=== PATIENT | male | born 1935 | race Caucasian/White ===

== ENCOUNTER 2021-03-09 06:13 | Day surgery (SDC) | payer MEDICARE, BC ==
[2021-03-08 16:25] LABS: BASOPHILS % (AUTO) 0.5 % (0-1); EOSINOPHILS # (AUTO) 0.2 X10'3 (0-0.9); HEMATOCRIT 43.9 % (42.0-52.0); HEMOGLOBIN 14.6 g/dl (14.0-17.9); LYMPHOCYTES # (AUTO) 1.1 X10'3 (1.1-4.8); LYMPHOCYTES % (AUTO) 18.8 % (21-51); MEAN CORPUSCULAR HEMOGLOBIN 28.7 PG (27.0-31.0); MEAN CORPUSCULAR HGB CONC 33.2 g/dL (33.0-36.5); MEAN CORPUSCULAR VOLUME 86.3 FL (78-98); MEAN PLATELET VOLUME 8.5 FL (7.4-10.4); MONOCYTES # (AUTO) 0.5 X10'3 (0-0.9); MONOCYTES % (AUTO) 8.5 % (2-12); NEUTROPHILS # (AUTO) 3.9 X10'3 (1.8-7.7); NEUTROPHILS % (AUTO) 69.2 % (42-75); PLATELET COUNT 213 X10'3 (140-440); RED BLOOD COUNT 5.08 X10'6 (4.70-6.10); RED CELL DISTRIBUTION WIDTH 13.9 % (11.5-14.5); WHITE BLOOD COUNT 5.6 X10'3 (4.5-11.0)
[2021-03-08 16:34] LABS: ALBUMIN 3.5 G/DL (3.4-5.0); ANION GAP 9 (8-16); BLOOD UREA NITROGEN 21 MG/DL (7-18); BUN/CREATININE RATIO 18.8 (5.4-32.0); CALCIUM 8.6 MG/DL (8.5-10.1); CHLORIDE 108 MMOL/L (99-107); CREATININE 1.12 MG/DL (0.60-1.10); GLUCOSE 91 MG/DL (70-104); POTASSIUM 5.1 MMOL/L (3.5-5.1); SODIUM 144 MMOL/L (135-145); TOTAL CARBON DIOXIDE 27.5 MMOL/L (24-32); eGFR 63 ML/MIN
[2021-03-08 16:37] LABS: PARTIAL THROMBOPLASTIN TIME 27 SECONDS (22-32)
[~2021-03-09] VITALS: Ht 180.3 cm; Wt 77.7 kg
[2021-03-09] VITALS (10 sets, daily range): BP systolic 120–158; BP diastolic 52–104
[~2021-03-09 06:13] MED LIST: APIX5TAB3 PO; FLO0.4C PO; LANS15CA14 PO; SOTA80TA73 PO
[2021-03-09] MEDS ORDERED: normal saline 1000ml 1,000 ML IV SCH ×2 (06:35→08:05)
[2021-03-09] MEDS ORDERED: ATOR20TA66 PO (06:48)
[2021-03-09] MEDS ORDERED: SOTA80TA PO (06:48)
[2021-03-09] MEDS ORDERED: VITAMIN D PO (06:50)
[2021-03-09] MEDS ORDERED: APIX5TAB3 PO (06:50)
[2021-03-09] MEDS ORDERED: midazolam 1 mg/ML 2ml injection ONE ×2 (07:25→08:43)
[2021-03-09] MEDS ORDERED: LIDOcaine 1% W/epiNEPHrine 1:100,000 20ml vial ONE (07:25)
[2021-03-09] MEDS ORDERED: ceFAZolin 1000mg inj ONE (07:25)
[2021-03-09] MEDS ORDERED: fentaNYL/PF 50MCG/1 ML 2ML syringe ONE (07:25)
[2021-03-09] MEDS ORDERED: LIDOCAINE 1%/EPI 1:100,000 inj. 10 ML multi-dose vial ONE (07:28)
[2021-03-09] MEDS ORDERED: cefazolin/dext.iso 2gm/100ml 100 ML IV ONE (08:05)
[2021-03-09] MEDS ORDERED: ceFAZolin/D5W- 1GM premix 50 ML IV ONE (08:06)
[2021-03-09] MEDS ORDERED: verapamil 2.5 mg/ml inj IV ONE (08:45)
[2021-03-09] MEDS ORDERED: amiodarone 50MG/ML inj IV ONE (08:51)
--- NOTE | 2021-03-09 09:45 | NUR ---
Pt returned from [facility] of [facility] cath lab with Vancomycin hung and running at 150ml/hr.
[2021-03-09] MEDS ORDERED: HYDROcodone/acetaminophen 10/325mg tab PO PRN (10:00)
[2021-03-09] MEDS ORDERED: HYDROcodone/acetaminophen 5mg/325mg tablet PO PRN (10:00)
--- NOTE | 2021-03-09 10:30 | NUR ---
Pt off the unit floor to have CXR.
--- NOTE | 2021-03-09 12:30 | NUR ---
Pt ambulated to bathroom, voided. Pt denies sob, denies cp.
== END 2021-03-09 15:00 | disposition home or self-care (01) ==
LOC: SSTAY O 06:13
PROVIDERS: ATTEND Internal Medicine Cardiovascular Disease
DX: I49.5 Sick sinus syndrome (principal); I25.119 Atherosclerotic heart disease of native coronary artery with unspecified angina pectoris; I25.2 Old myocardial infarction; I48.0 Paroxysmal atrial fibrillation; E78.5 Hyperlipidemia, unspecified; K21.9 Gastro-esophageal reflux disease without esophagitis; N40.0 Benign prostatic hyperplasia without lower urinary tract symptoms; Z96.651 Presence of right artificial knee joint; Z98.890 Other specified postprocedural states; Z79.899 Other long term (current) drug therapy; Z79.01 Long term (current) use of anticoagulants; Z88.2 Allergy status to sulfonamides; Z82.3 Family history of stroke
CPT/HCPCS: 33208; 36415; 71046; 80048; 85025; 85610; 85730; 93005; 99152; 99153; C1785; C1894; C1898; J0690; J2250; J3010; J7030; A4565; A4620; A6449

== ENCOUNTER 2022-04-28 09:34 | Outpatient (CLI) | payer MEDICARE, BC ==
[2022-04-28] VITALS (21 sets, daily range): BP systolic 130–163; BP diastolic 64–116
[~2022-04-28 09:34] MED LIST changes: +ATOR20TA66 PO; +SOTA80TA PO; -SOTA80TA73 PO; +VITAMIN D PO
== END 2022-04-28 23:59 | disposition home or self-care (01) ==
LOC: CARD DIAG 09:34
PROVIDERS: ATTEND Internal Medicine Cardiovascular Disease
DX: R42 Dizziness and giddiness (principal)
CPT/HCPCS: 93660